=== PATIENT | male | born 1995 | race Caucasian/White ===

== ENCOUNTER 2024-12-09 00:06 | Emergency (ER) | payer SELFPAY ==
[2024-12-09 00:11] VITALS: BP 131/83
[2024-12-09 00:34] VITALS: BMI 28.1
[2024-12-09 00:44] VITALS: BP 131/64
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
== END 2024-12-09 01:05 | disposition home or self-care (01) ==
LOC: EMR 00:06
PROVIDERS: EMERGENCY PHYSICIAN Emergency Medicine; FAMILY PHYSICIAN Family Medicine
DX: S13.4XXA Sprain of ligaments of cervical spine, initial encounter (principal); V59.40XA Driver of pick-up truck or van injured in collision with unspecified motor vehicles in traffic accident, initial encounter; Y92.410 Unspecified street and highway as the place of occurrence of the external cause
CPT/HCPCS: 99282